=== PATIENT | male | born 1980 | race Caucasian/White ===

== ENCOUNTER 2022-11-30 13:25 | Outpatient (CLI) | payer BC ==
[~2022-11-30 13:25] MED LIST: Iopamidol 370 76% 100 ML VIAL ONE
== END 2022-11-30 13:26 | disposition home or self-care (01) ==
LOC: CT 13:25
PROVIDERS: ATTEND Family Medicine
DX: R10.11 Right upper quadrant pain (principal); K76.89 Other specified diseases of liver
CPT/HCPCS: 74178; Q9967

== ENCOUNTER 2023-06-23 07:26 | Outpatient (CLI) | payer BC | END 2023-06-23 07:27 | disposition home or self-care (01) | LOC: BICULT 07:26 | PROVIDERS: ATTEND Internal Medicine Gastroenterology | DX: R74.8 Abnormal levels of other serum enzymes (principal); K76.0 Fatty (change of) liver, not elsewhere classified | CPT/HCPCS: 76705 ==